=== PATIENT | female | born 1975 | race Caucasian/White ===

== ENCOUNTER 2016-06-26 07:15 | Day surgery (SDC) | payer BC ==
[~2016-06-26] VITALS: Ht 160 cm; Wt 66.2 kg
[~2016-06-26 07:15] MED LIST: ALBU18HF2 ORAL INH; CETI-115 PO; LIDOCAINE 1% (10mg/ml) 2ml SDV INJ ONE; LORA0.5T86 PO; LR 1,000 ML IV SCH; MOME13HF3 INH
[2016-06-26] MEDS ORDERED: PROPOFOL 500mg 50 ML IV ONE (07:32)
[2016-06-26 07:57] VITALS: BP 127/75; PULSE 80; RESP 20; TEMP 98.5; O2SAT 99
[2016-06-26 07:58] VITALS: Ht 160 cm; Wt 66.2 kg
[2016-06-26] MEDS ORDERED: TRIA10.82 EA NOSTRIL (08:01)
[2016-06-26] MEDS ORDERED: ALFENTANIL 500mcg/ml - 2ml INJECTION ONE (09:10)
[2016-06-26 09:32] VITALS: BP 88/54; PULSE 74; RESP 16; TEMP 99; O2SAT 99
--- NOTE | 2016-06-26 09:35 | GSPOSTPROC ---
Immediate Operative Note DATE: 06/26/16 TIME: 09:34 Postop Diagnosis: Recent change in bowel habits Surgical Procedure: C-scope Surgeon: KEYSHA Mejia MD Jun 26, 2016 09:35
[2016-06-26 09:45] VITALS: BP 109/65; PULSE 88; RESP 22; O2SAT 100
--- NOTE | 2016-06-26 09:47 | ANESPO ---
Post-Op Note Date 06/26/16 Time: 09:47 Status Pt Participated in Evaluation: Pt participated in person Vital Signs Date Time Temp Pulse Resp B/P Pulse Ox O2 Delivery O2 Flow Rate FiO2 06/26/16 07:57 98.5 80 20 127/75 99 Room Air Respiratory Function: Airway patent, Regular respirations Cardiovascular Function: Regular pulse Mental Status: Alert/oriented Pain Level Intensity: 0 Hydration: Taking po fluids Complications during Recovery None apparent Follow-Up Instructions Instructions Per Surgeon LIANNA ARGUETA CRNA Jun 26, 2016 09:47
[2016-06-26 10:00] VITALS: BP 113/74; PULSE 90; RESP 19; O2SAT 100
--- NOTE | 2016-06-26 11:38 | OPNOTEF ---
DATE OF OPERATION 06/26/2016 PREOPERATIVE DIAGNOSIS Recent change in bowel habits. POSTOPERATIVE DIAGNOSES 1. Recent change in bowel habits. 2. Normal findings at colon and rectum at total colonoscopy. OPERATION Total colonoscopy SURGEON Anthony Ramirez MD ANESTHESIA TIVA ASA CLASS 2 FINDINGS There were no colon or rectal tumors. There were no colon or rectal polyps. There were no colonic angiodysplasia lesions. There was no melanosis coli. There was no inflammatory bowel disease. There was no colonic diverticulosis. Findings were normal throughout the colon and rectum. DESCRIPTION OF OPERATION The patient was brought to the endoscopy room. The patient was placed on a cart in the endoscopy room. The patient was placed in left lateral recumbent position on the cart in the endoscopy room. The patient was premedicated with intravenous sedation medication administered by the nurse auger machine offbearer. The Olympus colonoscope was used. The colonoscope was introduced into the rectum. The colonoscope was advanced up through the rectum and colon all the way up to the cecum. The appendiceal orifice was clearly visualized. The ileocecal valve was clearly visualized. The colonoscope was then withdrawn out through the colon and rectum and removed from the patient. Digital rectal examination was performed. Findings throughout the procedure were as described above. The patient did continue to receive intravenous sedation medication administered by the nurse auger machine offbearer throughout the operation. The patient did tolerate the operation well. RECOMMENDATION Followup colonoscopy again in 10 years. [facility]
== END 2016-06-26 10:06 | disposition home or self-care (01) ==
LOC: NSC 07:15
PROVIDERS: ATTEND Surgery
DX: R19.4 Change in bowel habit (principal); J45.909 Unspecified asthma, uncomplicated; F41.9 Anxiety disorder, unspecified; R51 Headache; Z79.1 Long term (current) use of non-steroidal anti-inflammatories (NSAID); Z79.899 Other long term (current) drug therapy
CPT/HCPCS: 45378; 81025; J2704; J7120